=== PATIENT | female | born 1990 | race Caucasian/White ===

== ENCOUNTER → 2019-12-25 13:13 | Outpatient (CLI) | payer BC, SELFPAY | PROVIDERS: PCP Internal Medicine Adolescent Medicine; Visit Provider Internal Medicine Adolescent Medicine | DX: G47.33 Obstructive sleep apnea (adult) (pediatric) (principal); G47.10 Hypersomnia, unspecified; R06.83 Snoring; E66.9 Obesity, unspecified | CPT/HCPCS: G0399 ==

== ENCOUNTER → 2020-05-25 11:00 | Outpatient (CLI) | payer BC, SELFPAY | PROVIDERS: PCP Internal Medicine Adolescent Medicine; Visit Provider Internal Medicine Adolescent Medicine | DX: Z03.818 Encounter for observation for suspected exposure to other biological agents ruled out (principal) | CPT/HCPCS: U0003 ==

== ENCOUNTER → 2020-08-22 11:44 | Outpatient (CLI) | payer OTHER, SELFPAY ==
[2020-08-22 12:39] LABS: Basophils % 0.5 % (0.1-2.0); Eosinophils # 0.1 K/mm3 (0.0-0.4); Eosinophils % 0.7 % (0.1-12.0); Hematocrit 42.4 % (37.0-47.0); Hemoglobin 13.8 g/dL (12.2-16.2); Lymphocytes # 3.2 K/mm3 (0.7-4.5); Lymphocytes % 43.6 % (10-50); Mean Corpuscular HGB Conc 32.5 g/dL (31.8-35.4); Mean Corpuscular Hemoglobin 30.6 pg (27.0-31.2); Mean Corpuscular Volume 94.2 fl (81-99); Mean Platelet Volume 8.3 fl (7.4-10.4); Monocytes # 0.3 K/mm3 (0.1-1.0); Monocytes % 4.4 % (1.7-9.3); Neutrophils # 3.7 K/mm3 (1.8-7.8); Neutrophils % 50.8 % (37.0-80.0); Platelet Count 224 K/mm3 (142-424); Red Cell Distribution Width 13.4 % (11.5-17.5); White Blood Count 7.3 K/mm3 (4.8-10.8)
[2020-08-22 12:51] LABS: Alanine Aminotransferase 37 U/L (12-78); Albumin Level 4.4 g/dl (3.5-5.0); Albumin/Globulin Ratio 1.4 (1.1-1.8); Alkaline Phosphatase 73 U/L (38-126); Anion Gap 9.5 mEq/L (5-15); Aspartate Amino Transferase 31 U/L (14-36); Bilirubin,Total 0.7 mg/dl (0.2-1.3); Blood Urea Nitrogen 13 mg/dl (7-17); Calcium 9.6 mg/dl (8.4-10.2); Carbon Dioxide 29 mmol/L (22.0-30.0); Chloride 103 mmol/L (98-107); Chol/HDL Ratio 4.5 (1-3.5); Cholesterol 232 mg/dl (140-200); Estimated Glomerular Filt Rate 84 ml/min (>60); GFR (African American) 102 ML/MIN (>60); Globulin 3.2 g/dL (1.3-3.2); Glucose 99 mg/dl (74-100); HDL Cholesterol 52 mg/dl (40-60); Potassium 4.5 mmoL/L (3.5-5.1); Sodium 137 mmol/L (136-145); Total Protein,Serum 7.6 g/dl (6.3-8.2); Triglycerides 198 mg/dl (30-150); VLDL Cholesterol 40 mg/dL (0-40)
[2020-08-22 13:02] LABS: Direct LDL Cholesterol 156.31 mg/dL (100-129)
[2020-08-22 13:21] LABS: 25-OH Vitamin D, Total < 12.8 ng/mL (30-100)
[2020-08-22 13:23] LABS: Thyroid Stimulating Hormone 2.52 uIU/mL (0.465-4.68)
[2020-08-22 13:42] LABS: Hemoglobin A1C 5.5 % (4.0-6.0); Vitamin B12 307 pg/mL (239-931)
== END ==
PROVIDERS: PCP Nurse Practitioner Family; Visit Provider Nurse Practitioner Family
DX: Z00.00 Encounter for general adult medical examination without abnormal findings (principal); R53.81 Other malaise; E55.9 Vitamin D deficiency, unspecified; G47.30 Sleep apnea, unspecified; Z13.220 Encounter for screening for lipoid disorders
CPT/HCPCS: 36415; 80053; 80061; 82306; 82607; 83036; 84443; 85025

== ENCOUNTER 2020-11-30 17:26 | Emergency (ER) | payer OTHER, SELFPAY ==
[2020-11-30 17:47] VITALS: BP 148/74; PULSE 81; RESP 16; TEMP 36.6; O2SAT 100; BMI 39.9
[2020-11-30 18:08] LABS: UTC Strep Screen (Rapid) Negative (Negative)
--- NOTE | 2020-11-30 18:08 | HMH.EDUTC ---
[facility] [place] Disposition Clinical Impression: Sinusitis Qualifiers: Sinusitis location: unspecified location Chronicity: acute Recurrence: non-recurrent Qualified Code(s): J01.90 - Acute sinusitis, unspecified Disposition: Home, Self-Care Condition on Discharge: Good Instructions: DI for Sinusitis Additional Instructions: Drink plenty of fluids. Take tylenol for pain or fever. Return if you begin to have difficulty breathing. Follow up with your regular doctor. GO TO THE ER FOR ANY WORSENING SYMPTOMS Prescriptions: Brompheniramine/Pseudoephed/Dm [Bromfed Dm Cough Syrup] 5 ml PO Q6HP PRN #240 syrup PRN Reason: Cough Transmission Status: Received by [facility] # predniSONE [Prednisone 20mg Tab] 20 mg PO BID 4 Days #8 tab Transmission Status: Received by [facility] # Azithromycin [Z-Puneet 250mg Tab*] 250 mg PO UD DOSE PK #6 tab Transmission Status: Received by [facility] # Referrals: Wang Payne MD [Primary Care Provider] - Time of Disposition: 18:15 Medical Decision Making - Medical Records Medical records reviewed: No: I reviewed the patient's medical records. - Sunil Inquiry Pt receiving controlled substance: No Vital Signs: 11/30/20 17:47 11/30/20 18:20 Temperature 97.9 F 98.3 F Temperature Source Oral Pulse Rate 83 Pulse Rate [Right Radial] 81 Respiratory Rate 16 16 Blood Pressure 142/79 H Blood Pressure [Right Arm] 148/74 H Blood Pressure Mean [Right Arm] 98 02 Sat by Pulse Oximetry 100 Oxygen Delivery Method Room Air - Lab Data Lab results reviewed: Yes: I reviewed the patient's lab results. Lab Results 11/30/20 17:59: Strep Scn Rapid Clinic Negative Orders (Tests/Meds): ORDERS Category Date Time Status Strep Screen Confirmation Stat Micro 11/30/20 17:59 Received [facility] [place] HPI - General Stated complaint: sore throat,cough,drainage Time Seen by Provider: 11/30/20 18:08 Mode of Arrival: Ambulatory Source of Information: Patient Limitations: No Limitations Description of Symptoms (Recalled from Triage Doc. by RN): sinus congestion, constant headache HEENT Symptoms (Recalled from RN notes): Yes Resp Symptoms (Recalled from RN notes): Yes Skin Symptoms (Recalled from RN notes): No MS Symptoms (Recalled from RN notes): No Functional Status (Recalled from RN notes): na - History of Present Illness Provider Complaint: She states that for the past 5 days she has had sinus congestion, sore throat, sinus pressure and nasal drainage. She has ran a fever at 100.0 also at times. - Related Data Previous Rx's Medication Instructions Recorded Dicyclomine HCl [Bentyl 10mg 10 mg PO TID PRN #15 cap 08/16/19 capsule] Ondansetron [Zofran 4mg ODT] 4 mg PO Q8HP PRN #20 tab.rapdis 08/16/19 Azithromycin [Z-Puneet 250mg Tab*] 250 mg PO UD DOSE PK #6 tab 11/30/20 Brompheniramine/Pseudoephed/Dm 5 ml PO Q6HP PRN #240 syrup 11/30/20 [Bromfed Dm Cough Syrup] predniSONE [Prednisone 20mg 20 mg PO BID 4 Days #8 tab 11/30/20 Tab] Allergies Allergy/AdvReac Type Severity Reaction Status Date / Time Penicillins [PENICILLINS] Allergy Unknown Verified 10/28/18 00:31 - Worker's Comp Is this a Worker's Comp case?: No [facility] History - Hepatitis A Screen Drug use history?: No High risk sexual behaviors?: No History of sexually transmitted infection?: No Currently employed?: No Childcare worker?: No Do you have indoor plumbing?: Yes Do you have electricity?: Yes Attestation statement:: This patient has been screened for Hepatitis A risk factors. I have reviewed the patient's past medical history: Yes Medical History: Denies:: Cancer, Diabetes Mellitus Type 1, Diabetes Mellitus Type 2, Internal Pacemaker, MRSA Other Surgeries: No: Pacemaker Amputation: No Fractures: No - Social History Smoking Status: Current every day smoker Tobacco Type: cigarettes # Packs/Day (cigarettes): 1 Alcohol Intake:
[2020-11-30 18:20] VITALS: BP 142/79; PULSE 83; RESP 16; TEMP 36.8
== END 2020-11-30 18:22 | disposition home or self-care (01) ==
PROVIDERS: Emergency Provider Nurse Practitioner Family; PCP Internal Medicine Adolescent Medicine
DX: J01.90 Acute sinusitis, unspecified (principal); Z88.0 Allergy status to penicillin; F17.210 Nicotine dependence, cigarettes, uncomplicated
CPT/HCPCS: 87880; 99202; G0463

== ENCOUNTER 2021-12-24 08:03 | Emergency (ER) | payer OTHER, SELFPAY ==
[2021-12-24 08:28] VITALS: BP 120/78; PULSE 67; RESP 17; TEMP 37.1; O2SAT 98; BMI 36.6
--- NOTE | 2021-12-24 08:36 | HMH.EDUTC ---
[facility] [place] Disposition Clinical Impression: External otitis of left ear Qualifiers: Otitis externa type: swimmer's ear Chronicity: acute Qualified Code(s): H60.332 - Swimmer's ear, left ear Disposition: Home, Self-Care Condition on Discharge: Good Instructions: How to Instill Ear Drops, Otitis Externa, DI for Otitis Externa Additional Instructions: Drink plenty of fluids. Take tylenol or ibuprofen for pain or fever. Use the ear drops as directed. Follow up with your regular doctor. GO TO THE ER FOR ANY WORSENING SYMPTOMS Prescriptions: Neomycin/Polymyxin B Sulf/Hc [Aweecsce-Skgbkosyd-AO Otic Susp 10mL] 3 drops OT TID 7 Days #1 ml Transmission Status: Received by [facility] Referrals: Wang Payne MD [Primary Care Provider] - Time of Disposition: 08:46 Medical Decision Making - Medical Records Medical records reviewed: No: I reviewed the patient's medical records. - Sunil Inquiry Pt receiving controlled substance: No Vital Signs: 12/24/21 08:28 12/24/21 08:48 Temperature 98.7 F 98.7 F Temperature Source Oral Pulse Rate 67 Pulse Rate [Left Radial] 67 Respiratory Rate 17 17 Blood Pressure 120/78 Blood Pressure [Right Arm] 120/78 Blood Pressure Mean [Right Arm] 92 02 Sat by Pulse Oximetry 98 [facility] [place] HPI - General Stated complaint: lt ear pain Time Seen by Provider: 12/24/21 08:36 Description of Symptoms (Recalled from Triage Doc. by RN): patient comes in today with complaints of left ear pain and fullness. patient states symptoms began saturday. HEENT Symptoms (Recalled from RN notes): Yes Resp Symptoms (Recalled from RN notes): No Skin Symptoms (Recalled from RN notes): No MS Symptoms (Recalled from RN notes): No Functional Status (Recalled from RN notes): wnl - History of Present Illness Provider Complaint: She states that she has had left ear pain and soreness below it for the past 2 days. She has been on vacation and swimming a lot and she thinks that she has swimmer's ear. - Related Data Previous Rx's Medication Instructions Recorded Dicyclomine HCl [Bentyl 10mg 10 mg PO TID PRN #15 cap 08/16/19 capsule] Ondansetron [Zofran 4mg ODT] 4 mg PO Q8HP PRN #20 tab.rapdis 08/16/19 Azithromycin [Z-Puneet 250mg Tab*] 250 mg PO UD DOSE PK #6 tab 11/30/20 Brompheniramine/Pseudoephed/Dm 5 ml PO Q6HP PRN #240 syrup 11/30/20 [Bromfed Dm Cough Syrup] predniSONE [Prednisone 20mg 20 mg PO BID 4 Days #8 tab 11/30/20 Tab] Neomycin/Polymyxin B Sulf/Hc 3 drops OT TID 7 Days #1 ml 12/24/21 [Srodooav-Xtwakhmgj-CT Otic Susp 10mL] Allergies Allergy/AdvReac Type Severity Reaction Status Date / Time Penicillins [PENICILLINS] Allergy Unknown Verified 12/24/21 08:32 - Worker's Comp Is this a Worker's Comp case?: No [facility] History - Hepatitis A Screen Attestation statement:: This patient has been screened for Hepatitis A risk factors. I have reviewed the patient's past medical history: Yes Medical History: Denies:: Cancer, Diabetes Mellitus Type 1, Diabetes Mellitus Type 2, Internal Pacemaker, MRSA Other Surgeries: No: Pacemaker Amputation: No Fractures: No - Social History Smoking Status: Current every day smoker Tobacco Type: cigarettes # Packs/Day (cigarettes): 1 Alcohol Intake: never Alcohol Intake Frequency:: a few times a week Occupational Status: other Housing: house ROS Obtained: Yes All systems reviewed & no additional complaints - Constitutional Constitutional: Denies chills, Denies fever(s) - Eyes Eyes: Denies eye discharge - ENT Ears, Nose, Mouth, and Throat: Reports as per HPI - Cardiovascular Cardiovascular: Denies chest pain - Respiratory Respiratory: Denies chest congestion, Denies cough - Gastrointestinal Gastrointestingal: Denies: abdominal pain, diarrhea, nausea, vomiting - Musculoskeletal Musculoskeletal: Denies joint pain, Denies neck pain - Integumentary/Breasts Skin/Breast: Denies rash - Neurologic
[2021-12-24 08:48] VITALS: BP 120/78; PULSE 67; RESP 17; TEMP 37.1
== END 2021-12-24 08:51 | disposition home or self-care (01) ==
PROVIDERS: Emergency Provider Nurse Practitioner Family; PCP Internal Medicine Adolescent Medicine
DX: H60.332 Swimmer's ear, left ear (principal)
CPT/HCPCS: 99212; G0463

== ENCOUNTER 2024-05-08 10:32 | Outpatient (CLI) | payer BC, SELFPAY ==
[2024-05-08 10:56] LABS: Basophils # 0.1 K/mm3 (0-0.2); Basophils % 0.8 % (0.1-2.0); Eosinophils # 0.1 K/mm3 (0.0-0.4); Eosinophils % 0.7 % (0.1-12.0); Hematocrit 41.7 % (37.0-47.0); Hemoglobin 13.7 g/dL (12.2-16.2); Lymphocytes # 2.8 K/mm3 (0.7-4.5); Mean Corpuscular HGB Conc 32.9 g/dL (31.8-35.4); Mean Corpuscular Hemoglobin 32.5 pg (27.0-31.2); Mean Corpuscular Volume 98.8 fl (81-99); Mean Platelet Volume 8.6 fl (7.4-10.4); Monocytes # 0.4 K/mm3 (0.1-1.0); Monocytes % 5.2 % (1.7-9.3); Neutrophils # 3.9 K/mm3 (1.8-7.8); Neutrophils % 54.4 % (37.0-80.0); Platelet Count 205 K/mm3 (142-424); Red Blood Count 4.22 M/mm3 (4.20-5.40); Red Cell Distribution Width 13.4 % (11.5-17.5); White Blood Count 7.1 K/mm3 (4.8-10.8)
[2024-05-08 11:19] LABS: Albumin Level 4.4 g/dl (3.5-5.0); Chloride 105 mmol/L (98-107); Potassium 4.1 mmoL/L (3.5-5.1); Sodium 139 mmol/L (136-145)
[2024-05-08 11:22] LABS: Alanine Aminotransferase 15 U/L (12-78); Albumin/Globulin Ratio 1.6 (1.1-1.8); Anion Gap 11.1 mEq/L (5-15); Aspartate Amino Transferase 18 U/L (14-36); Blood Urea Nitrogen 5 mg/dl (7-17); Carbon Dioxide 27 mmol/L (22.0-30.0); Estimated Glomerular Filt Rate 63 ml/min (>60); GFR (African American) 77 ML/MIN (>60); Globulin 2.7 g/dL (1.3-3.2); Total Protein,Serum 7.1 g/dl (6.3-8.2)
[2024-05-08 11:23] LABS: Alkaline Phosphatase 44 U/L (38-126); Bilirubin,Total 0.7 mg/dl (0.2-1.3); Calcium 9.3 mg/dl (8.4-10.2); Glucose 91 mg/dl (74-100)
[2024-05-08 13:50] LABS: HIV (1&2) Antibody Rapid NONREACTIVE (NONREACTIVE)
[2024-05-09 05:11] LABS: HCV Ab Non Reactive (Non Reactive)
[2024-05-09 08:35] LABS: Estradiol 66.7 pg/mL (.); FSH 5.2 mIU/mL (.); Progesterone 3.9 ng/mL (.); Testosterone,Total 34 ng/dL (8-60)
== END 2024-05-08 23:59 | disposition home or self-care (01) ==
LOC: LAB 10:33
PROVIDERS: PCP Internal Medicine Adolescent Medicine; Visit Provider Obstetrics & Gynecology
DX: Z13.9 Encounter for screening, unspecified (principal); Z01.419 Encounter for gynecological examination (general) (routine) without abnormal findings
CPT/HCPCS: 36415; 80053; 82626; 82670; 83001; 83002; 83036; 83498; 84144; 84403; 85025; 86803; 87389

== ENCOUNTER 2024-05-12 07:49 | Outpatient (CLI) | payer BC, SELFPAY ==
--- NOTE | 2024-05-12 07:49 | US_ITS ---
PROCEDURE: US TRANSVAGINAL CLINICAL INDICATION: Pelvic Pain COMPARISON: No exams were available for comparison FINDINGS: Transvaginal sonographic images of the pelvis were obtained. UTERUS: 8.0cm x 6.4cmx 4.0cm anteverted with a combined endometrial thickness of 5.7mm. The endometrium is homogeneous in appearance A scar is seen. There is a small collection of fluid superior to the uterus measuring 1.3 cm x 0.9 cm x 1.0 cm There is a hypoechoic area in the posterior uterus that measures 0.4 cm x 0.3 cm x 0.7 cm. Possible small fibroid. LEFT OVARY: 1.7 cmx1.8 cmx2.5cm with a volume of 4ml. There are several small peripheral follicles. RIGHT OVARY: 2.5cmx [id number] with a volume of 12.2ml. There are several small peripheral follicles. Follicle 1. Measures 2.2 cm x 1.4 cm x 1.9 cm. Follicle 2. Measures 1.1 cm x 1.1 cm x 2.1 cm Within the right ovary is a small hyperechoic area measuring 0.4 cm. Both ovaries are seen and appear normal. Doppler flow to both ovaries are seen. There is a moderate amount of fluid in the cul-de-sac. IMPRESSION: 1. Anteverted uterus normal in shape and size. The endometrium is thin, homogeneous and measures 5.7 mm. 2. Within the posterior aspect of the myometrium there is a small 0.7 cm area that could be a small fibroid. 3. Both ovaries are seen and appear normal. They both have multiple follicles. The right ovary has 2 prominent follicles the largest of which measures 2.2 cm. 4. There is moderate fluid in the cul-de-sac and superior to the fundus of the uterus. Dictated by: Doug Longoria MD 05/12/2024 10:01 Doug Longoria MD in OV 05/12/2024 10:01
== END 2024-05-12 23:59 | disposition home or self-care (01) ==
PROVIDERS: PCP Internal Medicine Adolescent Medicine; Visit Provider Obstetrics & Gynecology
DX: R10.2 Pelvic and perineal pain (principal)
CPT/HCPCS: 76830

== ENCOUNTER 2024-07-28 11:19 | Outpatient (CLI) | payer BC, SELFPAY ==
--- NOTE | 2024-07-28 11:32 | XR_ITS ---
FINAL REPORT CLINICAL HISTORY: NECK PAIN FINDINGS: CERVICAL SPINE Five views were obtained. There is no acute fracture. There is reversal of the cervical lordosis. The neuroforamina are widely patent. The disc spaces are well-preserved. There is no malalignment. IMPRESSION: No acute process. Reviewed, Interpreted and Dictated by Alex Lee MD Transcribed by Herminia Ronquillo Authenticated and [facility]
== END 2024-07-28 23:59 | disposition home or self-care (01) ==
PROVIDERS: PCP Internal Medicine Adolescent Medicine; Visit Provider Nurse Practitioner Family
DX: M54.2 Cervicalgia (principal); R20.2 Paresthesia of skin
CPT/HCPCS: 72050

== ENCOUNTER 2024-08-05 08:44 | Outpatient (RCR) | payer BC, SELFPAY ==
--- NOTE | 2024-08-05 12:19 | HMH.PTOPEV ---
PT Outpatient Evaluation Rehab PT Outpatient Evaluation Start: 08/05/24 11:49 Freq: Status: Active Protocol: Document 08/05/24 11:54 ROSEMARY (Rec: 08/05/24 12:18 ROSEMARY [id number]) E-signed By Dennys Larson, PT Outpatient Therapy Subjective History Subjective History Patient is a 34 year old female presenting to outpatient PT with reports of chronic cervical spine pain with associated RUE radicular symptoms. Symptoms of insidious onset starting 2023. Most recent imaging indicates loss of cervical lordosis. No other comorbidities to report. New diagnosis of cancer in past 12 No months? Chief Complaint Pain,Stiff,Paresthesia Symptom Type Ache,Numbness,Tingling Symptoms Relieved By Rest/Positioning,Ice, Prescription Meds Prior Functional Limitations None Current Functional Limitations Reaching,Lifting,Housework, Dressing,Desk Work/Reading, Driving,Sleeping,Recreation Activity Symptom Description Constant but Variable Level of pain today (0-10) 3 Pain scale - at its best (0-10) 3 Pain scale - at its worst (0-10) 8 Cervical Eval Palpation Cervical Muscles R Cervical Paraspinal,R Suboccipital,R Upper Trapezius Posture Head/C-Spine Posture Sitting Position C-Spine Flattened Head/C-Spine Posture Standing Position C-Spine Flattened Flexibility Deficits Upper Trapezius Muscle Length (R) Moderate Tightness Scalene Group Muscle Length (R) Moderate Tightness Pectoralis Minor Muscle Length (R) Moderate Tightness Passive Joint Mobility Cervical PIVM WNL: R OA L OA R AA L AA R C2/3 L C2/3 R C3/4 L C3/4 R C4/5 L C4/5 R C5/6 L C5/6 R C6/7 L C6/7 R C7/T1 L C7/T1 AROM Cervical Spine Extension Active Range of 26 Motion (degrees) Cervical Spine Flexion Active Range of 46 Motion (degrees) Cervical Spine Right Lateral Flexion 28 Active Range of Motion (degrees) Cervical Spine Left Lateral Flexion 42 Active Range of Motion (degrees) Cervical Spine Right Rotation Active 38 Range of Motion (degrees) Cervical Spine Left Rotation Active 32 Range of Motion (degrees) MMT Bilateral Deltoid (C5) 5 Normal Biceps Brachii Strength Grade 5 Normal Wrist Extension Strength Grade 5 Normal Wrist Flexion Strength Grade 5 Normal Extensor Pollicis Longus Strength Grade 5 Normal Finger Abduction Strength Grade 5 Normal Altered Sensation Right Upper extremity Dermatomes C6 Comment NT Special Test C-Spine Foraminal Compression (Spurling) Negative Left,Negative Right Test C-Spine Foraminal Distraction Test Negative Neck Disability Index Neck Disability Index Section 1: Pain Intensity The pain is moderate at the moment Section 2: Personal Care (washing, I can look after myself dressing, etc.) normally but it causes extra pain Section 3: Lifting Pain prevents me from lifting heavy weights, but I can manage light to Section 4: Reading I can read as much as I want with moderate pain in my neck Section 5: Headaches I have moderate headaches, which come frequently Section 6: Concentration I have a fair degree of difficulty in concentrating when I want to Section 7: Work I can do most of my usual work , but no more Section 8: Driving I can't drive my car as long as I want because of moderate pain in my Section 9: Sleeping My sleep is greatly disturbed (3-5 hrs sleepless) Section 10: Recreation I am able to engage in a few of my usual recreation activities because NDI Score 25 Outpatient Therapy Assessment Impairments Problems/Impairmments Palpation Tenderness,Impaired Range of Motion,Impaired Strength,Impaired Driving, Impaired Lifting,Impaired Dressing,Impaired Household Care,Impaired Recreational Activities,Impaired Work Activities,Subjective C/O Pain Prognosis Rehab Potential Good Clinical Impression Consistent with Diagnosis Yes Short Term Goals Number of Weeks 2 Decrease Subjective C/O Pain Yes: 5/10 at worst 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 Number of Weeks 4-6 Decreased Palpation Tenderness Yes: 1/4 Increase Range of Motion Yes: CROM WNL Increase Strength Yes: RUE WNL Restore Ability to Lift Objects to Yes: 10 lbs without difficulty Shoulder Level Restore Ability to Lift Objects Overhead Yes Improve Tolerance to Work Activities Yes Decrease Subjective C/O Pain Yes: 2/10 at worst Outpatient Therapy Plan of Care Treatment Plan May Include Therapeutic Exercise Including Home Yes Exercise Program Manual Therapy Techniques Yes Neuromuscular Re-education Yes Therapeutic Activities to Return to Yes Previous Functional/Work Level Gait Training Yes ADL/Self Care Education Yes Mechanical Traction Yes Dry Needling Yes Thermal Modalities Yes Electrical Stimulation Yes Ultrasound/Phonophoresis Yes Iontophoresis Yes Massage Yes Eval/Re-Eval Yes Frequency Times per week 2-3 Duration Number of Weeks 4-6 Addendums This patient is a candidate for social No or vocational rehab? Patient/Guardian verbally acknowledges Yes understanding of treatment program and consents to further treatment? Patient/Guardian verbally acknowledges Yes understanding of diagnosis, prognosis and goals for treatment? Eval Complexity PT Charges 12993 - Moderate Complexity Shoulder/Elbow Eval Shoulder Objective Measurements Elbow Objective Measurements PHYSICIAN CERTIFICATION: I certify the specified therapy services for Santi Lubin are required, authorized, and reviewed every 30 days.
== END 2024-08-05 23:59 | disposition home or self-care (01) ==
LOC: PT 08:44
PROVIDERS: PCP Internal Medicine Adolescent Medicine; Visit Provider Nurse Practitioner Family
DX: M54.2 Cervicalgia (principal); R20.2 Paresthesia of skin
CPT/HCPCS: 97163